=== PATIENT | female | born 1955 | race African-American/Black ===

== ENCOUNTER 2023-01-27 14:12 | Inpatient (IN) | payer BC ==
[~2023-01-27] VITALS: Ht 167.6 cm; Wt 105.2 kg
[2023-01-27] MEDS ORDERED: SODIUM CHLORIDE 0.9% 1000ML BAG (SEPSIS BOLUS) IV ONE (14:30)
[2023-01-27 15:38] LABS: BASOPHILS % 0.1 % (0.0-2.0); HEMATOCRIT. 38.9 % (36.0-48.0); HEMOGLOBIN. 12.8 g/dL (12.0-16.0); LYMPHOCYTES % 28.5 % (20.0-50.0); MEAN CORPUSCULAR HEMOGLOBIN 23.3 pg (28.0-32.0); MEAN CORPUSCULAR VOLUME 70.9 fL (81.0-99.0); MEAN PLATELET VOLUME 8.7 fl (7.4-10.4); MONOCYTES % 13.6 % (2.0-8.0); NEUTROPHILS % 57.8 % (40.0-76.0); PLATELET 152 x1000/uL (130-400); RED BLOOD CELL COUNT 5.48 mill/uL (4.2-5.4); RED CELL DISTRIBUTION WIDTH 17.9 % (11.6-14.6)
[2023-01-27 15:52] LABS: CHLORIDE 88 mEq/L (98-107)
[2023-01-27 15:53] LABS: INR 1.9; PARTIAL THROMBOPLASTIN TIME 48.6 sec (23.4-31.0); PROTHROMBIN TIME 19.3 sec (9.6-11.0)
[2023-01-27] MEDS ORDERED: PIPERACILLIN/TAZ 3.375G PREMIX 50 ML IV ONE (16:45)
[2023-01-27] MEDS ORDERED: VANCOMYCIN 1G PREMIX 200 ML IV ONE (16:45)
[2023-01-27 17:40] LABS: CLARITY URINE CLOUDY (CLEAR); COLOR URINE DARK YELLOW (YELLOW); KETONES URINE NEGATIVE (NEGATIVE); LEUKOCYTE ESTERASE URINE 1+ (NEGATIVE); NITRITE URINE POSITIVE (NEGATIVE); OCCULT BLOOD URINE NEGATIVE (NEGATIVE); PH URINE 5.5 (4.5-8.0); PROTEIN URINE TRACE (NEGATIVE); SPECIFIC GRAVITY URINE 1.017 (1.005-1.030); UROBILINOGEN URINE 0.2 E.U./dL (0.2-1.0)
[2023-01-27] MEDS ORDERED: KCL 10MEQ/50ML PREMIX 50 ML IV ONE (19:15)
[2023-01-27] MEDS ORDERED: IOHEXOL-300 100 ML BOTTLE ONE (20:21)
[2023-01-28] VITALS (7 sets, daily range): BP systolic 96–118; BP diastolic 50–64
[2023-01-28] MEDS ORDERED: SODIUM CHLORIDE 0.9% 1,000 ML IV ONE (01:00)
[2023-01-28] MEDS ORDERED: KCL 20MEQ/100ML PREMIX 100 ML IV NR (01:00)
[2023-01-28] MEDS ORDERED: ONDANSETRON HCL 4MG/2ML INJ IV PRN (02:00)
[2023-01-28] MEDS ORDERED: GUAIFENESIN 200MG/10ML SUGAR FREE UDC PO PRN (02:00)
[2023-01-28] MEDS ORDERED: IPRATROPIUM/ALBUTEROL 0.5-3(2.5)MG/3ML NEB NEB PRN (02:00)
[2023-01-28] MEDS ORDERED: ACETAMINOPHEN 325MG TABLET PO PRN ×2 (02:00)
[2023-01-28] MEDS ORDERED: DOCUSATE SODIUM 100MG CAPSULE PO PRN (02:00)
[2023-01-28] MEDS ORDERED: MAGNESIUM/ALUMINUM HYDROXIDE/SIMETHICONE 30ML UDC PO PRN (02:00)
[2023-01-28] MEDS ORDERED: DEXTROSE 50% WATER 50ML SYRINGE IV PRN (02:00)
[2023-01-28] MEDS ORDERED: PIPERACILLIN/TAZOBACTAM 3.375 G in DEXTROSE 5% WATER 50 ML IV SCH (02:00)
[2023-01-28] MEDS ORDERED: CLONIDINE 0.1MG TABLET PO PRN (02:00)
[2023-01-28] MEDS ORDERED: IPRATROPIUM BROMIDE (0.02%) 0.5MG/2.5ML NEB HHN PRN (02:15)
[2023-01-28] MEDS ORDERED: ALBUTEROL (0.083%) 2.5MG/3ML NEB HHN PRN (02:15)
[2023-01-28] MEDS: SODIUM CHLORIDE 0.9% 1,000 ML IV SCH ×3 (04:25→22:27)
[2023-01-28] MEDS ORDERED: MORPHINE SULFATE 2 MG/ML CPJ (NOT FOR IM USE) IV NR (05:00)
[2023-01-28 05:27] LABS: BASOPHILS % 0.2 % (0.0-2.0); HEMATOCRIT. 37.9 % (36.0-48.0); HEMOGLOBIN. 12.3 g/dL (12.0-16.0); LYMPHOCYTES % 22.9 % (20.0-50.0); MEAN CORPUSCULAR HEMOGLOBIN 22.9 pg (28.0-32.0); MEAN CORPUSCULAR VOLUME 70.6 fL (81.0-99.0); MEAN PLATELET VOLUME 8.6 fl (7.4-10.4); MONOCYTES % 12.2 % (2.0-8.0); NEUTROPHILS % 64.7 % (40.0-76.0); PLATELET 179 x1000/uL (130-400); RED BLOOD CELL COUNT 5.37 mill/uL (4.2-5.4); RED CELL DISTRIBUTION WIDTH 18.2 % (11.6-14.6)
[2023-01-28 05:32] LABS: CHLORIDE 92 mEq/L (98-107)
[2023-01-28 05:49] LABS: CREATINE KINASE 277 IU/L (26-192)
[2023-01-28] MEDS ORDERED: PIPERACILLIN/TAZOBACTAM 3.375G in DEXT 5% WATER 50ML IV SCH (06:00)
[2023-01-28 06:06] LABS: INR 1.8; PROTHROMBIN TIME 18.6 sec (9.6-11.0)
[2023-01-28 06:25] LABS: HDL CHOLESTEROL 18 mg/dL (40-59); LDL CHOLESTEROL 70 mg/dL (5-100)
[2023-01-28] MEDS ORDERED: PIPERACILLIN/TAZ 3.375G PREMIX 50 ML IV SCH (08:15)
[2023-01-28] MEDS: INSULIN LISPRO 100 UNITS/ML SUBCUT SCH ×4 (08:20→20:29)
[2023-01-28] MEDS: BLOOD SUGAR DIAGNOSTIC STRIP TEST SCH ×4 (08:46→20:29)
[2023-01-28] MEDS ORDERED: KCL 20MEQ/100ML PREMIX 100 ML IV ONE (09:15)
[2023-01-28] MEDS ORDERED: ALBUMIN HUMAN 25GM/100ML (25%) IV NR (09:45)
[2023-01-28 10:16] LABS: BG BASE EXCESS -1.8 mmol/L (-2.0-2.0); BG CARBOXYHEMOGLOBIN 0.5 % (0.5-1.5); BG DEOXYHEMOGLOBIN 6.7 % (0.0-5.0); BG FRACTION INSPIRED OXYGEN 32; BG HCO3 ACT 21.4 mmol/L (22.0-26.0); BG METHEMOGLOBIN 0.1 % (0.0-1.5); BG OXYGEN SATURATION 93.3 % (92.0-98.5); BG OXYHEMOGLOBIN 92.7 % (94.0-97.0); BG PCO2 31.7 mmHg (35.0-45.0); BG PH 7.447 (7.350-7.450); BG PO2 63.5 mmHg (75.0-100.0); BG SAMPLE SITE RIGHT RADIAL; BG TOTAL HEMOGLOBIN 12.9 g/dL (12.0-18.0); BG VENT MODE NASAL CANNULA
[2023-01-28] MEDS ORDERED: POTASSIUM PHOS,M-BASIC-D-BASIC 30 MMOL in DEXT 5% WATER 500 ML IV ONE (11:00)
[2023-01-28] MEDS: FAMOTIDINE 20MG/2ML VIAL IV SCH (14:51)
[2023-01-28] MEDS: PIPERACILLIN/TAZOBACTAM 3.375G in DEXT 5% WATER 50ML IV SCH ×2 (15:30→22:27)
[2023-01-28] MEDS: VANCOMYCIN 750MG PREMIX 150 ML IV SCH (17:31)
[2023-01-28 18:42] LABS: HEPATITIS B SURFACE ANTIGEN NEGATIVE
[2023-01-28] MEDS: PHYTONADIONE 10MG/ML AMP SUBCUT SCH (18:56)
[2023-01-28] MEDS: CARVEDILOL 3.125 MG TABLET PO SCH (20:08)
[2023-01-28] MEDS ORDERED: ENOXAPARIN 30MG/0.3ML SYR SUBCUT SCH (21:00)
[2023-01-29] VITALS (9 sets, daily range): BP systolic 92–115; BP diastolic 48–65
[2023-01-29] MEDS: PIPERACILLIN/TAZOBACTAM 3.375G in DEXT 5% WATER 50ML IV SCH ×3 (05:34→20:26)
[2023-01-29] MEDS ORDERED: PIPERACILLIN/TAZOBACTAM 3.375G in DEXT 5% WATER 50ML IV SCH (06:00)
[2023-01-29] MEDS: INSULIN LISPRO 100 UNITS/ML SUBCUT SCH ×4 (08:00→20:24)
[2023-01-29] MEDS: CARVEDILOL 3.125 MG TABLET PO SCH ×2 (08:06→20:25)
[2023-01-29] MEDS: BLOOD SUGAR DIAGNOSTIC STRIP TEST SCH ×4 (08:16→20:24)
[2023-01-29] MEDS: FAMOTIDINE 20MG/2ML VIAL IV SCH (08:16)
[2023-01-29] MEDS: PHYTONADIONE 10MG/ML AMP SUBCUT SCH (08:16)
[2023-01-29] MEDS ORDERED: SODIUM BICARBONATE 4% (2.4MEQ) 5ML VIAL IV ONE (08:21)
[2023-01-29] MEDS ORDERED: LIDOCAINE HCL 1% 30ML VIAL (10MG/ML) ONE (08:21)
[2023-01-29] MEDS: VANCOMYCIN 750MG PREMIX 150 ML IV SCH (11:59)
[2023-01-29 13:25] LABS: PHOSPHORUS 2.5 mg/dL (2.5-4.9)
[2023-01-29] MEDS: SODIUM CHLORIDE 0.9% 1,000 ML IV SCH ×2 (16:08→18:00)
[2023-01-29 17:31] LABS: BASOPHILS % 0.2 % (0.0-2.0); HEMATOCRIT. 37.4 % (36.0-48.0); HEMOGLOBIN. 12.3 g/dL (12.0-16.0); LYMPHOCYTES % 30.3 % (20.0-50.0); MEAN CORPUSCULAR HEMOGLOBIN 23.3 pg (28.0-32.0); MEAN CORPUSCULAR VOLUME 70.9 fL (81.0-99.0); MEAN PLATELET VOLUME 8.7 fl (7.4-10.4); NEUTROPHILS % 60.5 % (40.0-76.0); PLATELET 131 x1000/uL (130-400); RED BLOOD CELL COUNT 5.28 mill/uL (4.2-5.4); RED CELL DISTRIBUTION WIDTH 18.3 % (11.6-14.6)
[2023-01-29] MEDS ORDERED: PHYTONADIONE 10MG/ML AMP SUBCUT ONE (17:45)
[2023-01-30] VITALS (9 sets, daily range): BP systolic 95–121; BP diastolic 50–68
[2023-01-30 00:19] LABS: INR 1.7; PROTHROMBIN TIME 17.7 sec (9.6-11.0)
[2023-01-30] MEDS: SODIUM CHLORIDE 0.9% 1,000 ML IV SCH ×2 (03:54→12:56)
[2023-01-30] MEDS: PIPERACILLIN/TAZOBACTAM 3.375G in DEXT 5% WATER 50ML IV SCH ×3 (05:27→22:01)
[2023-01-30 06:26] LABS: BASOPHILS % 0.2 % (0.0-2.0); HEMATOCRIT. 36.8 % (36.0-48.0); HEMOGLOBIN. 12.1 g/dL (12.0-16.0); LYMPHOCYTES % 33.7 % (20.0-50.0); MEAN CORPUSCULAR HEMOGLOBIN 23.6 pg (28.0-32.0); MEAN CORPUSCULAR VOLUME 71.5 fL (81.0-99.0); MEAN PLATELET VOLUME 8.6 fl (7.4-10.4); MONOCYTES % 11.9 % (2.0-8.0); NEUTROPHILS % 54.2 % (40.0-76.0); PLATELET 148 x1000/uL (130-400); RED BLOOD CELL COUNT 5.14 mill/uL (4.2-5.4); RED CELL DISTRIBUTION WIDTH 18.1 % (11.6-14.6)
[2023-01-30 06:37] LABS: PHOSPHORUS 1.9 mg/dL (2.5-4.9)
[2023-01-30] MEDS: BLOOD SUGAR DIAGNOSTIC STRIP TEST SCH ×4 (07:30→21:59)
[2023-01-30] MEDS: INSULIN LISPRO 100 UNITS/ML SUBCUT SCH ×4 (08:00→21:00)
[2023-01-30] MEDS: FAMOTIDINE 20MG/2ML VIAL IV SCH (09:57)
[2023-01-30] MEDS: CARVEDILOL 3.125 MG TABLET PO SCH ×2 (09:57→21:00)
[2023-01-30] MEDS: PHYTONADIONE 10MG/ML AMP SUBCUT SCH (09:57)
[2023-01-30] MEDS ORDERED: POTASSIUM PHOS,M-BASIC-D-BASIC 30 MMOL in SODIUM CHLORIDE 0.9% 500 ML IV NR (10:00)
[2023-01-30] MEDS: VANCOMYCIN 750MG PREMIX 150 ML IV SCH (12:55)
[2023-01-31] VITALS (7 sets, daily range): BP systolic 98–121; BP diastolic 56–75
[2023-01-31] MEDS: PIPERACILLIN/TAZOBACTAM 3.375G in DEXT 5% WATER 50ML IV SCH ×2 (06:14→15:28)
[2023-01-31] MEDS: SODIUM CHLORIDE 0.9% 1,000 ML IV SCH (06:15)
[2023-01-31 07:04] LABS: BASOPHILS % 0.3 % (0.0-2.0); HEMATOCRIT. 37.8 % (36.0-48.0); HEMOGLOBIN. 12.6 g/dL (12.0-16.0); LYMPHOCYTES % 34.3 % (20.0-50.0); MEAN CORPUSCULAR HEMOGLOBIN 23.7 pg (28.0-32.0); MEAN CORPUSCULAR VOLUME 71.2 fL (81.0-99.0); MONOCYTES % 12.6 % (2.0-8.0); NEUTROPHILS % 52.8 % (40.0-76.0); RED BLOOD CELL COUNT 5.31 mill/uL (4.2-5.4); RED CELL DISTRIBUTION WIDTH 18.6 % (11.6-14.6)
[2023-01-31 07:24] LABS: CHLORIDE 103 mEq/L (98-107)
[2023-01-31 07:39] LABS: PHOSPHORUS 2.2 mg/dL (2.5-4.9)
[2023-01-31] MEDS: BLOOD SUGAR DIAGNOSTIC STRIP TEST SCH ×3 (07:44→16:52)
[2023-01-31] MEDS: INSULIN LISPRO 100 UNITS/ML SUBCUT SCH ×3 (08:00→17:07)
[2023-01-31] MEDS: CARVEDILOL 3.125 MG TABLET PO SCH (09:57)
[2023-01-31] MEDS: FAMOTIDINE 20MG/2ML VIAL IV SCH (09:57)
[2023-01-31] MEDS ORDERED: POTASSIUM PHOS,M-BASIC-D-BASIC 30 MMOL in SODIUM CHLORIDE 0.9% 500 ML IV NR (11:00)
[2023-01-31] MEDS: VANCOMYCIN 750MG PREMIX 150 ML IV SCH (12:27)
[2023-01-31 20:43] LABS: MEAN PLATELET VOLUME 8.3 fl (7.4-10.4); PLATELET 137 x1000/uL (130-400)
[2023-01-31 20:44] LABS: PLATELET ESTIMATE NORMAL
== END 2023-01-31 18:45 | disposition home health service (06) | DRG 871 ==
LOC: ER 14:12 → EDBEDREQ 15:07 → MICUSO 22:55 → EDBEDREQTM 23:04 → EDBEDREQ 23:04 → 5EST 01-28 14:32
PROVIDERS: ADMIT Hospitalist; ATTEND Hospitalist
DX: A41.9 Sepsis, unspecified organism (principal); E43 Unspecified severe protein-calorie malnutrition; J18.9 Pneumonia, unspecified organism; K85.90 Acute pancreatitis without necrosis or infection, unspecified; N17.0 Acute kidney failure with tubular necrosis; E87.1 Hypo-osmolality and hyponatremia; D68.4 Acquired coagulation factor deficiency; M62.82 Rhabdomyolysis; N39.0 Urinary tract infection, site not specified; R18.8 Other ascites; R65.20 Severe sepsis without septic shock; E11.22 Type 2 diabetes mellitus with diabetic chronic kidney disease; E87.6 Hypokalemia; E88.09 Other disorders of plasma-protein metabolism, not elsewhere classified; R06.03 Acute respiratory distress; N18.32 Chronic kidney disease, stage 3b; I12.9 Hypertensive chronic kidney disease with stage 1 through stage 4 chronic kidney disease, or unspecified chronic kidney disease; K57.30 Diverticulosis of large intestine without perforation or abscess without bleeding; K74.60 Unspecified cirrhosis of liver; E78.5 Hyperlipidemia, unspecified; E83.39 Other disorders of phosphorus metabolism; R16.1 Splenomegaly, not elsewhere classified; R74.01 Elevation of levels of liver transaminase levels; Z87.891 Personal history of nicotine dependence; Z82.49 Family history of ischemic heart disease and other diseases of the circulatory system; Z68.37 Body mass index [BMI] 37.0-37.9, adult
CPT/HCPCS: 36415; 36600; 71045; 74177; 76700; 76830; 76856; 80048; 80053; 80061; 80076; 80202; 80320; 81003; 82140; 82248; 82375; 82533; 82550; 82805; 82962; 83036; 83605; 83735; 83930; 84100; 84145; 84439; 84443; 84481; 84484; 85025; 86705; 86709; 86803; 86850; 86900; 87340; 87426; 87804; 92610; 93005; 93306; 93970; 97162; 97166; 97530; 99291; J2270; J2543; J3370; J3430; J3480; J3490; J7030; J7040; J7060; P9047; Q9967; A4315; G0480